=== PATIENT | female | born 1960 | race Caucasian/White ===

== ENCOUNTER 2021-11-06 17:43 | Inpatient (IN) | payer OTHER ==
[~2021-11-06] VITALS: Ht 165.1 cm; Wt 96.4 kg
[~2021-11-06 17:43] MED LIST: K-DUR TAB 20 M20 MEQ PO; LASIX40 MG PO
[2021-11-06 19:10] LABS: HEMOGLOBIN 12.9 gm/dl (12.3-15.3); RED BLOOD COUNT 3.84 M/UL (4.00-5.10); WHITE BLOOD COUNT 13.3 K/UL (4.5-11.0)
[2021-11-07 05:53] LABS: HEMOGLOBIN 13.1 gm/dl (12.3-15.3); RED BLOOD COUNT 3.94 M/UL (4.00-5.10); WHITE BLOOD COUNT 22.8 K/UL (4.5-11.0)
[2021-11-07 06:19] LABS: BUN/CREATININE RATIO 14 (0-10)
[2021-11-07] MEDS ORDERED: ALLOPURINOL300 MG PO (10:40)
[2021-11-07] MEDS ORDERED: AMLODIPINE BESY10 MG PO (10:41)
[2021-11-07] MEDS ORDERED: ATORVASTATIN CA20 MG PO (10:41)
[2021-11-07] MEDS ORDERED: CYMBALTA60 MG PO (10:42)
[2021-11-07] MEDS ORDERED: CYCLOBENZAPRINE5 MG PO (10:42)
[2021-11-07] MEDS ORDERED: LISINOPRIL30 MG PO (10:42)
[2021-11-07] MEDS ORDERED: CLONIDINE HCL0.1 MG PO (10:42)
[2021-11-07] MEDS ORDERED: MELATONIN5 M2 PO (10:43)
[2021-11-07] MEDS ORDERED: PREGABALIN150 MG PO (10:43)
[2021-11-07] MEDS ORDERED: SYNTHROID200 MCG PO (10:43)
[2021-11-08 02:04] LABS: HEMOGLOBIN 12.4 gm/dl (12.3-15.3); RED BLOOD COUNT 3.72 M/UL (4.00-5.10)
[2021-11-08 02:38] LABS: BUN/CREATININE RATIO 19 (0-10)
[2021-11-10 06:14] LABS: HEMOGLOBIN 11.4 gm/dl (12.3-15.3); RED BLOOD COUNT 3.48 M/UL (4.00-5.10); WHITE BLOOD COUNT 15.9 K/UL (4.5-11.0)
[2021-11-10 06:28] LABS: BUN/CREATININE RATIO 20 (0-10)
[2021-11-10] MEDS ORDERED: LISINOPRIL30 MG PO (08:57)
[2021-11-10] MEDS ORDERED: MEDROL DOSEPAK 24 MG PO (08:57)
[2021-11-10] MEDS ORDERED: POLYETHYLENE GL17 GM PO (08:57)
[2021-11-10] MEDS ORDERED: AMOX TR-K CLV1 EAC4 PO (08:57)
[2021-11-10] MEDS ORDERED: SYNTHROID200 MCG PO (08:57)
[2021-11-10] MEDS ORDERED: CLONIDINE HCL0.1 MG PO (08:57)
[2021-11-10] MEDS ORDERED: SYMBICORT 16010.2 GM INH (08:57)
[2021-11-10] MEDS ORDERED: NICOTINE PATCH1 EAC2 TD (08:57)
[2021-11-10] MEDS ORDERED: COMBIVENT RESPIM4 GM INH (08:57)
--- NOTE | 2021-11-10 17:04 | NUR ---
PT AND CASE MGMT HAS SPOKEN TO [facility]. WAITING FOR [facility] [employer] TO CALL BACK TO ACCEPT PT. PT STATES IS HOMELESS AND HAS NOWHERE TO GO SO IS TRYING TO FIND SOMEWHERE TO GO.
--- NOTE | 2021-11-11 01:09 | NUR ---
PATIENT AWAITING BED AT [facility]. WAS INFORMED IN REPORT THAT PATIENT IS HOMELESS AND CASE MANAGEMENT IS WORKING WITH PATIENT
== END 2021-11-11 12:11 | disposition home or self-care (01) | DRG 177 ==
LOC: ER1 17:43 → CDU 11-07 00:33 → PROG CARE 11-07 00:33 → M/S 11-08 18:29
PROVIDERS: Emergency Medicine; Internal Medicine; Internal Medicine Infectious Disease; ADMIT Internal Medicine
PROC: B24BZZZ Ultrasonography of Heart with Aorta (ICD-10-PCS; principal; 2021-11-07)
PROC: 5A09357 Assistance with Respiratory Ventilation, Less than 24 Consecutive Hours, Continuous Positive Airway Pressure (ICD-10-PCS; 2021-11-07)
PROC: 5A09357 Assistance with Respiratory Ventilation, Less than 24 Consecutive Hours, Continuous Positive Airway Pressure (ICD-10-PCS; 2021-11-07)
PROC: 5A09357 Assistance with Respiratory Ventilation, Less than 24 Consecutive Hours, Continuous Positive Airway Pressure (ICD-10-PCS; 2021-11-08)
PROC: 5A09357 Assistance with Respiratory Ventilation, Less than 24 Consecutive Hours, Continuous Positive Airway Pressure (ICD-10-PCS; 2021-11-08)
PROC: 5A09357 Assistance with Respiratory Ventilation, Less than 24 Consecutive Hours, Continuous Positive Airway Pressure (ICD-10-PCS; 2021-11-09)
DX: J69.0 Pneumonitis due to inhalation of food and vomit (principal); J96.01 Acute respiratory failure with hypoxia; N18.6 End stage renal disease; Z20.822 Contact with and (suspected) exposure to COVID-19; J44.0 Chronic obstructive pulmonary disease with (acute) lower respiratory infection; J44.1 Chronic obstructive pulmonary disease with (acute) exacerbation; E22.2 Syndrome of inappropriate secretion of antidiuretic hormone; I13.2 Hypertensive heart and chronic kidney disease with heart failure and with stage 5 chronic kidney disease, or end stage renal disease; T43.215A Adverse effect of selective serotonin and norepinephrine reuptake inhibitors, initial encounter; M10.9 Gout, unspecified; E78.5 Hyperlipidemia, unspecified; E66.9 Obesity, unspecified; R74.01 Elevation of levels of liver transaminase levels; I08.1 Rheumatic disorders of both mitral and tricuspid valves; I50.9 Heart failure, unspecified; F17.210 Nicotine dependence, cigarettes, uncomplicated; E03.9 Hypothyroidism, unspecified; Z91.14 Patient's other noncompliance with medication regimen; Z90.710 Acquired absence of both cervix and uterus; Z88.0 Allergy status to penicillin; Z88.2 Allergy status to sulfonamides; Z88.8 Allergy status to other drugs, medicaments and biological substances; Z86.14 Personal history of Methicillin resistant Staphylococcus aureus infection; Z90.49 Acquired absence of other specified parts of digestive tract; Z98.890 Other specified postprocedural states; Z99.81 Dependence on supplemental oxygen; Z82.49 Family history of ischemic heart disease and other diseases of the circulatory system; Z68.32 Body mass index [BMI] 32.0-32.9, adult; Z59.00 Homelessness unspecified
CPT/HCPCS: ECHO; 36415; 36600; 71045; 71275; 80053; 80061; 82550; 82553; 82803; 83036; 83605; 83735; 83880; 84443; 84484; 85025; 85027; 85379; 87040; 93005; 93306; 94640; 94645; 94660; 94664; 94760; 96374; 96375; 99285; J0295; J1650; J1940; J2920; Q9967

== ENCOUNTER 2021-11-27 14:39 | Inpatient (IN) | payer OTHER ==
[~2021-11-27] VITALS: Ht 165.1 cm; Wt 99.3 kg
[~2021-11-27 14:39] MED LIST changes: +ALLOPURINOL300 MG PO; +AMLODIPINE BESY10 MG PO; +AMOX TR-K CLV1 EAC4 PO; +ATORVASTATIN CA20 MG PO; +CLONIDINE HCL0.1 MG PO; +COMBIVENT RESPIM4 GM INH; +CYCLOBENZAPRINE5 MG PO; +CYMBALTA60 MG PO; +LISINOPRIL30 MG PO; +MEDROL DOSEPAK 24 MG PO; +MELATONIN5 M2 PO; +NICOTINE PATCH1 EAC2 TD; +POLYETHYLENE GL17 GM PO; +PREGABALIN150 MG PO; +SYMBICORT 16010.2 GM INH; +SYNTHROID200 MCG PO
[2021-11-27 15:33] LABS: HEMOGLOBIN 12.1 gm/dl (12.3-15.3); RED BLOOD COUNT 3.56 M/UL (4.00-5.10); WHITE BLOOD COUNT 6.8 K/UL (4.5-11.0)
[2021-11-28 04:17] LABS: HEMOGLOBIN 12.1 gm/dl (12.3-15.3); RED BLOOD COUNT 3.56 M/UL (4.00-5.10)
[2021-11-28 04:22] LABS: WHITE BLOOD COUNT 4.7 K/UL (4.5-11.0)
[2021-11-28 04:40] LABS: BUN/CREATININE RATIO 17 (0-10)
[2021-11-28 07:13] LABS: BORDETELLA PARAPERTUSSIS Not Detected (Not Detectd); BORDETELLA PERTUSSIS Not Detected (Not Detectd); CORONAVIRUS HKU1 Not Detected (Not Detectd); CORONAVIRUS NL63 Not Detected (Not Detectd); CORONAVIRUS OC43 Not Detected (Not Detectd); CORONOAVIRUS 229E Not Detected (Not Detectd); HUMAN METAPNEUMOVIRUS Not Detected (Not Detectd); HUMAN RHINOVIRUS/ENTEROVIRUS Not Detected (Not Detectd); INFLUENZA A Not Detected (Not Detectd); INFLUENZA B Not Detected (Not Detectd); PARAINFLUENZA VIRUS 1 Not Detected (Not Detectd); PARAINFLUENZA VIRUS 2 Not Detected (Not Detectd); PARAINFLUENZA VIRUS 3 Not Detected (Not Detectd); PARAINFLUENZA VIRUS 4 Not Detected (Not Detectd); RESPIRATORY SYNCYTIAL VIRUS Not Detected (Not Detectd)
[2021-11-28 07:14] LABS: CHLAMYDIA PNEUMONIAE Not Detected (Not Detectd); MYCOPLASMA PNEUMONIAE Not Detected (Not Detectd)
[2021-11-28 08:41] LABS: SARS-CoV-2 NOT DETECTED (Not Detectd)
[2021-11-28] MEDS ORDERED: BUPRENORPHIN-N1 EACH SL (09:38)
[2021-11-28] MEDS ORDERED: FUROSEMIDE20 MG PO (09:39)
[2021-11-28] MEDS ORDERED: CLONIDINE HCL0.1 MG PO (09:41)
[2021-11-28] MEDS ORDERED: SYMBICORT 16010.2 GM INH (09:41)
[2021-11-28] MEDS ORDERED: ONDANSETRON ODT4 MG PO (10:24)
[2021-11-29 06:27] LABS: HEMOGLOBIN 13.3 gm/dl (12.3-15.3); RED BLOOD COUNT 3.79 M/UL (4.00-5.10)
[2021-11-29 06:31] LABS: WHITE BLOOD COUNT 13.7 K/UL (4.5-11.0)
[2021-11-29 06:46] LABS: BUN/CREATININE RATIO 33 (0-10)
--- NOTE | 2021-11-29 17:10 | NUR ---
Patient walked in room without nasal cannula in place. 02 sat dropped to 87% after five laps of the room. Patient placed back in bed on 2L of O2.
--- NOTE | 2021-12-01 12:00 | NUR ---
CALLED [facility] TO VERIFY PATIENTS AT HOME LYRICA DOSE. PHARMACY STAFF SAID THAT PATIENT HAD NOT HAD ANY LYRICA FILLED SINCE AUGUST. IN AUGUST PATIENT WAS TAKING LYRICA 150MG TID. DR. [id number] NOTIFIED
[2021-12-02 07:37] LABS: HEMOGLOBIN 14.7 gm/dl (12.3-15.3); RED BLOOD COUNT 4.42 M/UL (4.00-5.10); WHITE BLOOD COUNT 12.3 K/UL (4.5-11.0)
[2021-12-02 08:15] LABS: BUN/CREATININE RATIO 39 (0-10)
[2021-12-02] MEDS ORDERED: ASPIRIN EC81 MG PO (11:48)
[2021-12-02] MEDS ORDERED: ISOSORBIDE MONO30 MG PO (11:48)
[2021-12-02] MEDS ORDERED: TOPROL XL25 MG PO (11:48)
== END 2021-12-02 17:30 | disposition home or self-care (01) | DRG 286 ==
LOC: ER1 14:39 → CDU 22:22 → MED SURG 4 22:22
PROVIDERS: Internal Medicine; Physician Assistant; ADMIT Internal Medicine
PROC: 4A023N7 Measurement of Cardiac Sampling and Pressure, Left Heart, Percutaneous Approach (ICD-10-PCS; principal; 2021-12-02)
PROC: B2111ZZ Fluoroscopy of Multiple Coronary Arteries using Low Osmolar Contrast (ICD-10-PCS; 2021-12-02)
DX: I25.119 Atherosclerotic heart disease of native coronary artery with unspecified angina pectoris (principal); J96.01 Acute respiratory failure with hypoxia; Z20.822 Contact with and (suspected) exposure to COVID-19; J44.1 Chronic obstructive pulmonary disease with (acute) exacerbation; E66.2 Morbid (severe) obesity with alveolar hypoventilation; F11.20 Opioid dependence, uncomplicated; F17.210 Nicotine dependence, cigarettes, uncomplicated; I10 Essential (primary) hypertension; M10.9 Gout, unspecified; E03.9 Hypothyroidism, unspecified; R74.01 Elevation of levels of liver transaminase levels; I87.8 Other specified disorders of veins; Z82.49 Family history of ischemic heart disease and other diseases of the circulatory system; Z91.14 Patient's other noncompliance with medication regimen; Z79.82 Long term (current) use of aspirin; Z79.01 Long term (current) use of anticoagulants; Z99.81 Dependence on supplemental oxygen; Z90.49 Acquired absence of other specified parts of digestive tract; Z88.0 Allergy status to penicillin; Z88.2 Allergy status to sulfonamides; Z88.8 Allergy status to other drugs, medicaments and biological substances; Z86.14 Personal history of Methicillin resistant Staphylococcus aureus infection; Z68.36 Body mass index [BMI] 36.0-36.9, adult
CPT/HCPCS: 36415; 36600; 71045; 78452; 80048; 80053; 82550; 82553; 82803; 83880; 84484; 85025; 85379; 85610; 85730; 87633; 93005; 93017; 93571; 93970; 94640; 94664; 94760; 94762; 96374; 96375; 96376; 99152; 99153; 99285; A9502; C1769; C1887; J0153; J0461; J1644; J1650; J1940; J2250; J2785; J2920; J2930; J3010; J7040; Q9967

== ENCOUNTER 2021-12-12 20:10 | Emergency (ER) | payer OTHER ==
[~2021-12-12 20:10] MED LIST changes: +ASPIRIN EC81 MG PO; +BUPRENORPHIN-N1 EACH SL; +FUROSEMIDE20 MG PO; +ISOSORBIDE MONO30 MG PO; +ONDANSETRON ODT4 MG PO; +TOPROL XL25 MG PO
[2021-12-13 02:39] LABS: HEMOGLOBIN 11.9 gm/dl (12.3-15.3); RED BLOOD COUNT 3.44 M/UL (4.00-5.10); WHITE BLOOD COUNT 9.3 K/UL (4.5-11.0)
== END 2021-12-13 03:29 | disposition home or self-care (01) ==
LOC: ER1 20:10
PROVIDERS: Physician Assistant
DX: R10.9 Unspecified abdominal pain (principal); G89.18 Other acute postprocedural pain; M79.651 Pain in right thigh; I11.0 Hypertensive heart disease with heart failure; I50.9 Heart failure, unspecified; E78.00 Pure hypercholesterolemia, unspecified; J44.9 Chronic obstructive pulmonary disease, unspecified; F17.210 Nicotine dependence, cigarettes, uncomplicated; Z90.89 Acquired absence of other organs; Z90.49 Acquired absence of other specified parts of digestive tract; Z90.710 Acquired absence of both cervix and uterus; Z88.2 Allergy status to sulfonamides; Z91.030 Bee allergy status; Z51.81 Encounter for therapeutic drug level monitoring
CPT/HCPCS: 73701; 80053; 85025; 85610; 85730; 99284; Q9967